=== PATIENT | female | born 1980 | race Caucasian/White ===

== ENCOUNTER 2018-04-23 16:06 | Emergency (ER) | payer MEDICAID ==
[2018-04-23] MEDS: KETOROLAC 30 MG INJ IM (17:13)
== END 2018-04-23 17:39 | disposition home or self-care (01) ==
LOC: FTE 16:06
DX: G44.209 Tension-type headache, unspecified, not intractable (principal); R40.2142 Coma scale, eyes open, spontaneous, at arrival to emergency department; R40.2252 Coma scale, best verbal response, oriented, at arrival to emergency department; R40.2362 Coma scale, best motor response, obeys commands, at arrival to emergency department
CPT/HCPCS: 81025; 96372; 99284-25